=== PATIENT | male | born 1970 | race Caucasian/White ===

== ENCOUNTER 2021-08-21 00:07 | Day surgery (SDC) | payer OTHER, SELFPAY ==
[2021-08-08 14:58] VITALS: BMI 59.3
[2021-08-21 10:56] VITALS: BP 148/85; PULSE 71; RESP 20; TEMP 36.5; O2SAT 97
[2021-08-21] MEDS: LACTATED RINGERS 1,000 ML 150 ML IV CONT (11:09)
[2021-08-21 11:13] LABS: Glucose Point of Care 112 mg/dl (65-105)
--- NOTE | 2021-08-21 11:44 | WPDHPUPDATE1 ---
History and Physical Update Update Date/Time: 08/21/21 11:44 History and Physical has been reviewed, including an updated exam of the patient. There are NO changes in the patient's condition. Risks, benefits, and alternatives have been discussed and questions answered. Patient agrees to proceed with procedure.
--- NOTE | 2021-08-21 11:59 | WPDANESEPPF ---
Anes - Initial Pre Proc Eval Procedure: Operation Date: 08/21/21 13:00 Proposed Procedures p Esophagogastroduodenoscopy & Colonoscopy - Joselito Carmona MD Date/Time: 08/21/21 11:59 Surgeon: Joselito Carmona MD Pre Op Diagnosis: Dark stools, Abdominal pain, GERD Patient Data Age: 50 Gender: M Height: 1.8 m Weight: 182.6 kg Last Vital Signs Temp 36.5 C 08/21/21 10:56 Pulse 71 08/21/21 10:56 Resp 20 08/21/21 10:56 BP 148/85 H 08/21/21 10:56 Pulse Ox 97 08/21/21 10:56 Allergies Allergy/AdvReac Type Severity Reaction Status Date / Time No Known Allergies Allergy Verified 08/21/21 10:55 Home Medications Medication Instructions Recorded Confirmed Type albuterol sulfate 90 mcg/actuation 1 puff INHALATION Q4H PRN 07/26/21 08/21/21 History aerosol inhaler atorvastatin 10 mg tablet 10 mg PO DAILY 07/26/21 08/21/21 History metformin 1,000 mg tablet 1,000 mg PO BID 07/26/21 08/21/21 History omeprazole 20 mg capsule,delayed 20 mg PO DAILY 07/26/21 08/21/21 History release pioglitazone 15 mg tablet 15 mg PO DAILY 07/26/21 08/21/21 History Laboratory Tests 08/21/21 11:08 POC Capillary Glucose 112 mg/dl H mg/dl (65-105) Patient hx anesthesia problems: none Family hx anesthesia problems: none Results Review: All pre-operative results and documents have been reviewed as part of the pre-operative evaluation. [facility] Past Medical History Medical History Asthma Black stools Diabetes Hypertension Obesity EVELYNE (obstructive sleep apnea) Social History Social History Smoking status: Never smoker Alcohol intake: never Substance use: never Substance use type: does not use Living arrangements: with family Spiritual care concerns: No Anes - Eval Final PreProcedure Day of Procedure 08/21/21 11:59 Patient weight: super morbidly obese Heart: regular rate and rhythm Lungs: clear to auscultation Airway: Mallampati scale class II Neurological: alert and oriented Last oral intake: >/= 8 hours ASA classification: III Emergent: no Anesthetic plan: proceed Anesthesia type and monitoring: general GIVS and standard monitoring Results Review: All pre-operative results and documents have been reviewed as part of the pre-operative evaluation. Informed Consent: The patient's anesthetic plan and its attendant risks and benefits were discussed with the patient/family/POA. Questions were solicited and answers provided to the satisfaction of the patient/family/POA.
--- NOTE | 2021-08-21 12:06 | SUR.OPER ---
EGD end: 1201 COLONOSCOPY START: 1207
[2021-08-21 12:23] VITALS: BP 123/60; PULSE 70; RESP 21; O2SAT 97
[2021-08-21 12:33] VITALS: BP 115/61; PULSE 62; RESP 16; O2SAT 98
[2021-08-21 12:43] VITALS: BP 136/84; PULSE 62; RESP 17; O2SAT 98
== END 2021-08-21 12:56 | disposition home or self-care (01) ==
PROVIDERS: PCP Family Medicine; Visit Provider Internal Medicine Gastroenterology
PROC: 0DJ08ZZ Inspection of Upper Intestinal Tract, Via Natural or Artificial Opening Endoscopic (ICD-10-PCS; CPT 43235; principal; 2021-08-21 13:00)
DX: Z12.11 Encounter for screening for malignant neoplasm of colon (principal); K92.1 Melena; R10.84 Generalized abdominal pain; K21.9 Gastro-esophageal reflux disease without esophagitis; G47.33 Obstructive sleep apnea (adult) (pediatric); E11.9 Type 2 diabetes mellitus without complications; R10.30 Lower abdominal pain, unspecified; Z79.84 Long term (current) use of oral hypoglycemic drugs; Z79.51 Long term (current) use of inhaled steroids; J45.909 Unspecified asthma, uncomplicated; I10 Essential (primary) hypertension; E66.01 Morbid (severe) obesity due to excess calories; Z68.43 Body mass index [BMI] 50.0-59.9, adult
CPT/HCPCS: 45378; 43239; 82948; 87081; J7120